=== PATIENT | female | born 1965 | race Caucasian/White ===

== ENCOUNTER 2019-10-28 10:40 | Outpatient (CLI) | payer OTHER, SELFPAY ==
--- NOTE | ~2019-10-28 | MM_ITS ---
EXAMINATION: MM screening doc BI w alvarado HISTORY: Screening mammogram TECHNIQUE: Craniocaudal and mediolateral oblique 3-D tomosynthesis images were obtained and synthetic 2-D images were generated. CAD analysis was submitted and interpreted. COMPARISON: Comparison to multiple prior studies sequentially, with oldest reviewed study dated 02/27. BREAST PARENCHYMAL COMPOSITION: There are scattered areas of fibroglandular density. FINDINGS: There is no evidence of suspicious mass, calcification, or architectural distortion to sugg est malignancy in either breast. There has been no suspicious interval change. IMPRESSION: 1. No mammographic evidence of malignancy. 2. Recommend routine screening mammography in one year. BI-RADS Category 1: Negative Reviewed, dictated and finalized at location A.
== END 2019-10-28 10:41 | disposition home or self-care (01) ==
LOC: ANHIMG 10:44
PROVIDERS: PCP Family Medicine; Visit Provider Family Medicine
DX: Z12.31 Encounter for screening mammogram for malignant neoplasm of breast (principal)
CPT/HCPCS: 77063; 77067

== ENCOUNTER 2020-11-07 08:37 | Outpatient (CLI) | payer OTHER, SELFPAY ==
--- NOTE | ~2020-11-07 | MM_ITS ---
EXAMINATION: MM screening [facility] BI w alvarado HISTORY: Screening mammogram TECHNIQUE: Craniocaudal and mediolateral oblique 3-D tomosynthesis images were obtained and synthetic 2-D images were generated. CAD analysis was submitted and interpreted. COMPARISON: 10/28/2019, 10/07/2018, 03/21/2018 BREAST PARENCHYMAL COMPOSITION: There are scattered areas of fibroglandular density. FINDINGS: There is no evidence of suspicious mass, calcification, or architectural distortion to sugg est malignancy in either breast. There has been no suspicious interval change. IMPRESSION: 1. No mammographic evidence of malignancy. 2. Recommend routine screening mammography in one year. BI-RADS Category 1: Negative Reviewed, dictated and finalized at location A.
== END 2020-11-07 08:38 | disposition home or self-care (01) ==
LOC: ANHIMG 08:40
PROVIDERS: PCP Family Medicine; Visit Provider Family Medicine
DX: Z12.31 Encounter for screening mammogram for malignant neoplasm of breast (principal)
CPT/HCPCS: 77063; 77067

== ENCOUNTER 2021-11-08 11:25 | Outpatient (CLI) | payer OTHER, SELFPAY ==
--- NOTE | ~2021-11-08 | MMUS_ITS ---
EXAMINATION: MM diagnostic doc BI w alvarado, US breast RT limited HISTORY: Palpable lump of the inner right breast at the 3:00 location TECHNIQUE: Craniocaudal, mediolateral, and mediolateral oblique 3-D tomosynthesis images of the breas ts were performed and synthetic 2-D images were generated. CAD analysis was submitted and interpreted . High resolution limited right breast ultrasound was performed. COMPARISON: 11/07/2020, 10/28/2019, 10/07/2018, 03/21/2018 BREAST PARENCHYMAL COMPOSITION: There are scattered areas of fibroglandular density. FINDINGS: MAMMOGRAPHIC FINDINGS: There is a 4 mm mass projecting in the skin in the posterior third of the inner right breast at the 3 :00 location 12 cm from the nipple corresponding to the palpable abnormality of concern. There is no suspicious mass, calcification, or architectural distortion in either breast to suggest malignancy. There has been no suspicious interval change. ULTRASOUND: There is a 5 mm mass at the 3:00 location 13 cm from the nipple with a tract to the skin correspondin g to the palpable abnormality of concern, consistent with a sebaceous cyst. IMPRESSION: 1. Sebaceous cyst of the right breast corresponding to the palpable abnormality of concern. No mammog raphic or sonographic evidence of malignancy. 2. Recommend routine screening mammography in one year. BI-RADS Category 2: Benign finding(s). Reviewed, dictated and finalized at location A. IMPRESSION: 1. Sebaceous cyst of the right breast corresponding to the palpable abnormality of concern. No mammographic or sonographic evidence of malignancy. 2. Recommend routine screening mammography in one year. BI-RADS Category 2: Benign finding(s).
== END 2021-11-08 11:26 | disposition home or self-care (01) ==
LOC: ANHIMG 11:27
PROVIDERS: PCP Family Medicine; Visit Provider Physician Assistant
DX: N60.81 Other benign mammary dysplasias of right breast (principal)
CPT/HCPCS: 76642; 77062; 77066; G0279

== ENCOUNTER 2022-09-12 01:03 | Day surgery (SDC) | payer OTHER, SELFPAY ==
[2022-08-29 13:28] VITALS: BMI 25.4
--- NOTE | 2022-09-11 16:24 | PM.HPGS ---
History of Present Illness History of Present Illness Consent: Risks, benefits, and alternatives have been discussed and questions answered. Patient agrees to proceed with procedure. Chief complaint: KE, Rectal Bleeding Narrative: Frieda Nielsen is a 57 year old female referred for investigation of iron deficiency anemia and rectal bleeding. Her last hemoglobin is 10.6. She has been found to be very low in iron. Iron saturation is 12%. Serum ferritin is only 3. He does not see blood her stools. She has lost about 30 lb in last few months but has been trying to lose weight. Her last colonoscopy was 8 years ago. She does not use NSAIDs. Review of Systems Review of Systems: All systems reviewed & are unremarkable except as noted in HPI and below PMFSH Past Medical History Medical History Easy bruising Elevated blood pressure reading Hemorrhoids Hyperlipemia Palpitations Vaginal atrophy Well woman exam with routine gynecological exam Wellness examination Family History Family History Father Family history of cardiovascular disease Other Diabetes mellitus Social History Social History Social History: Smoking status: Never smoker Second hand tobacco smoke exposure: No Alcohol intake: never Substance use: never Substance use type: does not use Living arrangements: with family Occupation/Education: retired Gender identity (if verbalized by the patient): Female Sexual Orientation (if Verbalized by the Patient): Straight or Heterosexual Spiritual care concerns: No Meds Home Medications and Allergies Home Medications Medication Instructions Recorded Confirmed Type cholecalciferol (vitamin D3) 25 25 mcg PO DAILY #100 caps 06/20/21 08/29/22 Rx mcg (1,000 unit) capsule ferrous sulfate 325 mg (65 mg 650 mg PO EVERY OTHER DAY 08/29/22 08/29/22 History iron) tablet,delayed release Allergies Allergy/AdvReac Type Severity Reaction Status Date / Time acetaminophen Allergy Intermediate NAUSEA/VOMI Verified 09/12/22 11:49 TING hydrocodone [From Vicodin] Allergy Intermediate Nausea and Verified 09/12/22 11:49 Vomiting oxycodone [From Percocet] Allergy Intermediate Nausea and Verified 09/12/22 11:49 Vomiting propoxyphene Allergy Intermediate Nausea and Verified 09/12/22 11:49 [From Casi-N] Vomiting Sulfa (Sulfonamide Allergy Intermediate NEON RED Verified 09/12/22 11:49 Antibiotics) RASH Exam Const: General: alert Orientation/consciousness: patient oriented x3 Resp: Auscultation: clear to auscultation bilaterally Cardio: Rhythm: regular rhythm GI: GI Palp: Yes Soft to palpation and No Tenderness to palpation present (GI) Neuro: General: patient oriented x3 Assessment and Plan Assessment and plan (1) Positive fecal occult blood test: Code(s): R19.5 - Other fecal abnormalities Status: Acute Assessment and Plan: EGD with possible biopsy or dilatation or cautery. Colonoscopy with possible biopsy or polypectomy or cautery or injection of substances.
--- NOTE | 2022-09-12 11:49 | WPDANESEPPF ---
Anes - Initial Pre Proc Eval Procedure: Operation Date: 09/12/22 13:00 Proposed Procedures p Esophagogastroduodenoscopy & Colonoscopy - Richard Clarke MD Date/Time: 09/12/22 11:49 Surgeon: Richard Clarke MD Pre Op Diagnosis: KE, Rectal Bleeding Patient Data Age: 57 Gender: F Height: 1.7 m Weight: 73.8 kg Allergies Allergy/AdvReac Type Severity Reaction Status Date / Time acetaminophen Allergy Intermediate NAUSEA/VOMI Verified 09/12/22 11:49 TING hydrocodone [From Vicodin] Allergy Intermediate Nausea and Verified 09/12/22 11:49 Vomiting oxycodone [From Percocet] Allergy Intermediate Nausea and Verified 09/12/22 11:49 Vomiting propoxyphene Allergy Intermediate Nausea and Verified 09/12/22 11:49 [From Darvocet-N] Vomiting Sulfa (Sulfonamide Allergy Intermediate NEON RED Verified 09/12/22 11:49 Antibiotics) RASH Home Medications Medication Instructions Recorded Confirmed Type cholecalciferol (vitamin D3) 25 25 mcg PO DAILY #100 caps 06/20/21 08/29/22 Rx mcg (1,000 unit) capsule ferrous sulfate 325 mg (65 mg 650 mg PO EVERY OTHER DAY 08/29/22 08/29/22 History iron) tablet,delayed release Patient hx anesthesia problems: none Family hx anesthesia problems: none Results Review: All pre-operative results and documents have been reviewed as part of the pre-operative evaluation. [facility] Past Medical History Medical History Easy bruising Elevated blood pressure reading Hemorrhoids Hyperlipemia Palpitations Vaginal atrophy Well woman exam with routine gynecological exam Wellness examination Family History Family History Father Family history of cardiovascular disease Other Diabetes mellitus Social History Social History Social History: Smoking status: Never smoker Second hand tobacco smoke exposure: No Alcohol intake: never Substance use: never Substance use type: does not use Living arrangements: with family Occupation/Education: retired Gender identity (if verbalized by the patient): Female Sexual Orientation (if Verbalized by the Patient): Straight or Heterosexual Spiritual care concerns: No Anes - Eval Final PreProcedure Day of Procedure 09/12/22 11:49 Patient weight: normal Heart: regular rate and rhythm Lungs: clear to auscultation Airway: Mallampati scale class II Neurological: alert and oriented Last oral intake: >/= 8 hours ASA classification: II Emergent: no Anesthetic plan: proceed Anesthesia type and monitoring: general GIVS and standard monitoring Results Review: All pre-operative results and documents have been reviewed as part of the pre-operative evaluation. Informed Consent: The patient's anesthetic plan and its attendant risks and benefits were discussed with the patient/family/POA. Questions were solicited and answers provided to the satisfaction of the patient/family/POA.
[2022-09-12 11:52] VITALS: BP 128/77; PULSE 70; RESP 18; TEMP 36.4; O2SAT 100
[2022-09-12] MEDS: LACTATED RINGERS 1,000 ML 150 ML IV CONT (12:01)
--- NOTE | 2022-09-12 12:38 | SUR.OPER ---
EGD ended at 1233. Colonoscopy began at 1238.
[2022-09-12 12:50] VITALS: BP 133/85; PULSE 79; RESP 23; O2SAT 100
[2022-09-12 13:00] VITALS: BP 130/82; PULSE 70; RESP 21; O2SAT 100
[2022-09-12 13:10] VITALS: BP 129/83; PULSE 65; RESP 21; O2SAT 100
== END 2022-09-12 13:26 | disposition home or self-care (01) ==
PROVIDERS: PCP Family Medicine; Visit Provider Internal Medicine Gastroenterology
PROC: 0DJ08ZZ Inspection of Upper Intestinal Tract, Via Natural or Artificial Opening Endoscopic (ICD-10-PCS; CPT 43235; principal; 2022-09-12 13:00)
DX: D50.9 Iron deficiency anemia, unspecified (principal); K62.5 Hemorrhage of anus and rectum; E78.5 Hyperlipidemia, unspecified; K64.8 Other hemorrhoids
CPT/HCPCS: 43239; 45378; 87081; 88305; J2704; J7120

== ENCOUNTER 2023-01-14 08:51 | Outpatient (CLI) | payer OTHER, SELFPAY ==
--- NOTE | ~2023-01-14 | MM_ITS ---
EXAMINATION: MM screening doc BI w alvarado HISTORY: Screening TECHNIQUE: Craniocaudal and mediolateral oblique 3-D tomosynthesis images were obtained and synthetic 2-D images were generated. CAD analysis was submitted and interpreted. COMPARISON: Comparison to multiple prior studies sequentially, with oldest reviewed study dated 03/01. BREAST PARENCHYMAL COMPOSITION: There are scattered areas of fibroglandular density. FINDINGS: There is no evidence of suspicious mass, calcification, or architectural distortion to sugg est malignancy in either breast. There has been no suspicious interval change. IMPRESSION: 1. No mammographic evidence of malignancy. 2. Recommend routine screening mammography in one year. BI-RADS Category 1: Negative Reviewed, dictated and finalized at location A.
== END 2023-01-14 08:52 | disposition home or self-care (01) ==
LOC: ANHIMG 08:55
PROVIDERS: PCP Family Medicine; Visit Provider Physician Assistant
DX: Z12.31 Encounter for screening mammogram for malignant neoplasm of breast (principal)
CPT/HCPCS: 77063; 77067

== ENCOUNTER 2023-02-04 13:57 | Outpatient (CLI) | payer OTHER, SELFPAY ==
--- NOTE | ~2023-02-04 | US_ITS ---
EXAMINATION: US art doppler w press LE BI DATE: 02/04/2023 15:08 INDICATION: Bilateral lower limb pain TECHNIQUE: Segmental pressures and plethysmographic and Doppler waveforms of the brachial and lower e xtremity arteries were obtained. COMPARISON: None. FINDINGS: Right and left brachial artery pressures of 119 mm Hg and 116 mm Hg, respectively, are concordant (no rmal difference <= 30 mmHg). The right high thigh pressure index is 1.3 (normal > 1.2). The left high thigh pressure index was unable to be obtained due to inability to occlude the vessel. The right ankle-brachial index (SARINA) is 1.22 (normal >= 0.9-1). The right great toe-brachial index (T BI) is 0.92 (normal >= 0.6-0.8). The right lower extremity segmental pressure gradients is increased between the right [id number] popliteal artery and the arteries at the right ankle (normal gradien ts <= 20-30 mmHg between adjacent levels on the same leg or the same levels on the two legs). Arteria l waveforms are biphasic at the right dorsalis pedis artery and triphasic at the more proximal arteri es with brisk systolic upstrokes throughout. The left SARINA is 1.27. The left TBI is 0.86. The left lower extremity segmental pressure gradients are normal. Arterial waveforms are triphasic with brisk systolic upstrokes throughout the arteries of th e left lower limb. IMPRESSION: 1. Normal SARINA's and TBI's bilaterally. No significant occlusive disease. Reviewed, dictated and finalized at location A.
== END 2023-02-04 13:58 | disposition home or self-care (01) ==
LOC: ANHIMG 13:59
PROVIDERS: PCP Family Medicine; Visit Provider Internal Medicine Cardiovascular Disease
DX: M79.605 Pain in left leg (principal); M79.604 Pain in right leg
CPT/HCPCS: 93923

== ENCOUNTER 2023-04-11 07:46 | Outpatient (CLI) | payer OTHER, SELFPAY ==
--- NOTE | ~2023-04-11 | XR_ITS ---
EXAMINATION: XR lumbar spine min 4V DATE: 04/11/2023 08:12 INDICATION: Bilateral lower limb pain TECHNIQUE: Anteroposterior, lateral, and bilateral oblique views of the lumbar spine, and cone-down l ateral view of the lumbosacral junction were obtained. COMPARISON: None. FINDINGS: Bone alignment is normal. There is no fracture. There is moderate loss of intervertebral di sc space height at L1-2. The vertebral body heights are maintained. Small degenerative osteophytes pr oject from the anterior endplates of multiple vertebral bodies. There is multilevel mild facet joint osteoarthritis. IMPRESSION: 1. Mild lumbar spondylosis without acute findings. Reviewed, dictated and finalized at location L. ICATION SPECIALIST
== END 2023-04-11 07:47 | disposition home or self-care (01) ==
PROVIDERS: PCP Family Medicine; Visit Provider Physician Assistant
DX: M79.604 Pain in right leg (principal); M79.605 Pain in left leg; M47.26 Other spondylosis with radiculopathy, lumbar region
CPT/HCPCS: 72110

== ENCOUNTER 2024-04-16 15:14 | Outpatient (CLI) | payer OTHER, SELFPAY ==
--- NOTE | ~2024-04-16 | MM_ITS ---
EXAMINATION: MM screening doc BI w alvarado HISTORY: Screening TECHNIQUE: Craniocaudal and mediolateral oblique 3-D tomosynthesis images were obtained and synthetic 2-D images were generated. CAD analysis was submitted and interpreted. COMPARISON: Comparison to multiple prior studies sequentially, with oldest reviewed study dated 02/28. BREAST PARENCHYMAL COMPOSITION: Not dense: There are scattered areas of fibroglandular density. FINDINGS: There is no evidence of suspicious mass, calcification, or architectural distortion to sugg est malignancy in either breast. There has been no suspicious interval change. IMPRESSION: 1. No mammographic evidence of malignancy. 2. Recommend routine screening mammography in one year. BI-RADS Category 1: Negative Reviewed, dictated and finalized at location B. OUT INSPECTOR
== END 2024-04-16 15:15 | disposition home or self-care (01) ==
LOC: ANHIMG 15:18
PROVIDERS: PCP Family Medicine; Visit Provider Family Medicine
DX: Z12.31 Encounter for screening mammogram for malignant neoplasm of breast (principal)
CPT/HCPCS: 77063; 77067

== ENCOUNTER 2025-04-19 15:49 | Outpatient (CLI) | payer OTHER, SELFPAY ==
--- NOTE | ~2025-04-19 | MM_ITS ---
EXAMINATION: MM screening doc BI w alvarado HISTORY: Screening. TECHNIQUE: Craniocaudal and mediolateral oblique 3-D tomosynthesis images were obtained and synthetic 2-D images were generated. CAD analysis was submitted and interpreted. COMPARISON: 2023, 2022, and 2021. BREAST PARENCHYMAL COMPOSITION: Dense: The breasts are heterogeneously dense, which may obscure small masses. FINDINGS: No suspicious masses are seen. There are no suspicious calcifications. No unexplained architectural distortion is seen. There are no skin or nipple abnormalities identified. There is no adenopathy seen on the images submitted. IMPRESSION: No mammographic evidence to suggest malignancy is seen. The patient may return to screening mammography as per ACR guidelines. BI-RADS 1 - Negative. Reviewed, dictated and finalized at location A. T DESK MANAGER
--- OUTSIDE RECORDS SUMMARY | 2025-04-19 17:06 | XMS_ITS | Clinical Summary ---
Author Organization [facility] Address [address] [place] [address] Care Team Providers Care Furnace Packer Name Role Phone Jimmie Barrett MD Primary Care Provider Unanakia ilable Source Comments [facility],non-owned Affiliates and Associated Physician Practices is amultiple site organization consisting of ambulatory clinics and hospital sitesin [place], [place], [place] and [place]. This disclosure is being madepursuant to the Care Everywhere program and may not contain all information available regarding this patient. Last updated 18.[facility] Allergies Active Allergy Reactions Criticality Noted Date Comments Sulfa Drugs 12/30/2008 Medications * Be aware that medications may not be up to date on this document. Alwaysverify current medications with the patient. LUNESTA PO Take by mouth as directed. Active Active Problems Problem Noted Date Diagnosed Date Atrophy of breast 12/30/2008 Overview (05/23/2009): 10/29/07 Lt needle core bx x 4. Dx small needle core bx fragments of atrophic hyalinized breast tissue with absence of microcalcifications and rare mildly atypical ductal epithelial cells seen. 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 Gender Identity Not on file Sexual Orientation Not on file Occupation Industry Job Start Date Job End Date teacher Not on file Not on file Not on file Plan of Treatment Health Maintenance Due Date Last Done Comments COLOGUARD (AGES 45-75) - COL ON CA SCREENING 1964 COLON MONITORING 1964 COLONOSCOPY - COLON CA SCREENING 1964 CT COLONOGRAPHY - COLON CA SCREENING 1964 Colorectal Cancer Screening 1964 FIT - COLON CA SCREENING 1964 FLEX SIG - COLON CA SCREENING 1964 LIPID TESTING 1964 HIV SCREENING 02/05/1979 HEPATITIS C SCREENING 02/01/1982 DTAP/TDAP/TD VACCINES (1 - Tdap) 02/05/1983 PAP SMEAR 02/05/1985 MAMMOGRAM 10/11/2010 10/11/2008 PNEUMOCOCCAL VACCINE 50+ (1 of 1 - PCV) 02/05/2014 ZOSTER VACCINE (1 of 2) 02/05/2014 DEPRESSION SCREENING 04/29/2024 COVID-19 VACCINE (1 - 2024-2 6 season) 2024 INFLUENZA VACCINE (#1) 2024 Respiratory Syncytial Virus (RSV) Vaccine Pt: or over 60 yrs (1 - 1-dose 75+ series) 02/05/2039 HEPATITIS B VACCINE Aged Out No longe r eligible based on patient's age to complete this topic HIB VACCINE Aged Out No longer eligi ble based on patient's age to complete this topic HPV VACCINE Aged Out No longer eligi ble based on patient's age to complete this topic MENINGOCOCCAL (Group B) VACC INE SHARED DECISION-MAKING Aged Out No longer eligibl e based on patient's age to complete this topic MENINGOCOCCAL GROUPS A/C/Y/W VACCINE Aged Out No longer eligible b ased on patient's age to complete this topic Procedures Procedure Name Priority Date/Time Associated Diagnosis Comments MAMMO BILAT DIAGNOSTIC Routine 10/11/2008 10:15 AM CDT Abnormal Mammogram, Unspecified from Last 3 Months or Most Recently Relevant to Health Maintenance Results * MAMMO DIAG DIRECT DIGITAL IMAGE BILA (10/11/2008 10:15 AM CDT) Anatomical Region Laterality Modality Bilateral Mammography 10/11/2008 2:09 PM CDT Narrative 10/12/2008 8:52 AM CDT DIGITAL BILATERAL DIAGNOSTIC MAMMOGRAMS WITH CAD DATE: 10/11/2008 PREVIOUS EXAM DATE: 02/09/2008 (left only) and 10/21/2006 (bilateral). INDICATIONS: Followup biopsy left breast indicating atypical hyperplasia. TECHNIQUE: MLO and CC views both breasts. Rolled and exaggerated CC views left breast TECHNOLOGIST: ESTHER LIN TISSUE DENSITY: Average FINDINGS: No discrete abnormality. No significant new finding. ASSESSMENT: Negative mammograms - BIRADS Category 1. RECOMMENDATIONS: Routine followup in one year. The above findings should be correlated with physical examination. A relatively nonspecific study should not preclude additional evaluation if suspicious findings are present clinically. An [employer] Certified Facility. Procedure Note Kayden Muller / Eleizer Flores (Clerical Edit - 10/11/2008 DIGITAL BILATERAL DIAGNOSTIC MAMMOGRAMS WITH CAD DATE: 10/11/2008 PREVIOUS EXAM DATE: 02/09/2008 (left only) and 10/21/2006 (bilateral). INDICATIONS: Followup biopsy left breast indicating atypical hyperplasia. TECHNIQUE: MLO and CC views both breasts. Rolled and exaggerated CC views left breast TECHNOLOGIST: ESTHER LIN TISSUE DENSITY: Average FINDINGS: No discrete abnormality. No significant new finding. ASSESSMENT: Negative mammograms - BIRADS Category 1. RECOMMENDATIONS: Routine followup in one year. The above findings should be correlated with physical examination. A relatively nonspecific study should not preclude additional evaluation if suspicious findings are present clinically. An [employer] Certified Facility. Jimmie Barrett MD MAMMO ORDERABLES Edited Resu lt - Final from Last 3 Months or Most Recently Relevant to Health Maintenance Insurance [employer] Care Teams Furnace Packer Relationship Specialty Start Date End Date Jimmie Barrett MD PCP - General 12/30/08
--- OUTSIDE RECORDS SUMMARY | 2025-04-19 17:06 | XMS_ITS | Clinical Summary ---
Author Organization [facility] Address [facility] [place] [address] Care Team Providers Care Popcorn Machine Operator Name Role Phone Gustabo Yin MD Primary Care Provider [phone] Allergies Active Allergy Reactions Criticality Noted Date Comments Sulfa Antibiotics Rash Low 01/28/2019 Hydrocodone-Acetaminophen Unknown 02/27/2020 Medications zolpidem 5 MG tablet Take 5 mg by mouth nightly as needed for Sleep. Active Social History Tobacco Use Types Packs/Day Years Used Date Smoking Tobacco: Never Smokeless Tobacco: Never Alcohol Use Standard Drinks/Week Comments No 0 (1 standard drink = 0.6 oz pur e alcohol) AUDIT-C Answer Date Recorded Frequency of Alcohol Consumption Never 01/28/2019 Average Number of Drinks Not on file 019 Frequency of Binge Drinking Not on file 05/2018 Comments No Sex and Gender Information Value Date Recorded Sex Assigned at Not on file Legal Sex Female 8:21 PM CDT Gender Identity Not on file Sexual Orientation Not on file Last Filed Vital Signs Vital Sign Reading Time Taken Comments Blood Pressure 170/89 10/23/2021 5:51 PM CDT Pulse 74 10/23/2021 5:51 PM CDT Temperature 36.2 C (97.1 F) 10/23/2021 6:47 PM CDT Respiratory Rate 18 10/23/2021 5:51 PM CDT Oxygen Saturation 99% 10/23/2021 5:51 PM CDT Inhaled Oxygen Concentration - - Weight 79.4 kg (175 lb) 10/23/2021 5:51 PM CDT Height 170.2 cm (5' 7) 10/23/2021 5:51 PM CDT Body Mass Index 27.41 10/23/2021 5:51 PM CDT Plan of Treatment Health Maintenance Due Date Last Done Comments Cervical Cancer Screening Pa p Smear (Age 30 to 64) Every 3 Years 1964 Colorectal Cancer Screening Colonoscopy (10 Years) 1964 Annual Physical 02/05/1967 Hepatitis C 02/05/1982 DTaP, Tdap and Td Vaccines ( 1 - Tdap) 02/05/1983 Cervical Cancer Screening Pa p with HPV Testing (Age 30 to 64) Every 5 Years 02/05/1994 Cervical Cancer Screening wi th HPV 02/05/1994 Mammogram Screening 2004 Pneumococcal Vaccine: 50+ Years (1 of 1 - PCV) 02/05/2014 COVID-19 Vaccine (3 - 2024-2 6 season) 2024 07/12/2020, 06/14/2020 Influenza Adult (#1) 2025 02/21/2020 RSV Immunization or 60+ Years (1 - 1-dose 75+ series) 02/05/2039 Zoster Vaccines Completed 05/03/2020, 02/21/2020 Hepatitis A Vaccines Aged Out No long er eligible based on patient's age to complete this topic Meningococcal B Vaccine Aged Out No l onger eligible based on patient's age to complete this topic Meningococcal Vaccine Aged Out No caty mia eligible based on patient's age to complete this topic RSV Immunizations Under 20 Months Aged Out No longer eligible b ased on patient's age to complete this topic Insurance [employer] [facility] Care Teams Popcorn Machine Operator Relationship Specialty Start Date End Date Gustabo Yin MD [address] [place] [address] PCP - General FAMILY PRACTICE 01/28/19
== END 2025-04-19 15:50 | disposition home or self-care (01) ==
PROVIDERS: PCP Family Medicine; Visit Provider Family Medicine
DX: Z12.31 Encounter for screening mammogram for malignant neoplasm of breast (principal)
CPT/HCPCS: 77063; 77067